=== PATIENT | male | born 1970 | race Two or more races ===

== ENCOUNTER 2022-11-24 17:30 | Emergency (ER) | payer OTHER ==
[2022-11-24 17:53] VITALS: RESP 18
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
[2022-11-24 20:46] VITALS: BP 167/92; PULSE 63; TEMP 98.2
== END 2022-11-24 20:45 | disposition home or self-care (01) ==
LOC: EC 17:30
DX: M54.50 Low back pain, unspecified (principal); V89.2XXA Person injured in unspecified motor-vehicle accident, traffic, initial encounter; Y92.410 Unspecified street and highway as the place of occurrence of the external cause
CPT/HCPCS: 72110; 99284

== ENCOUNTER → 2023-02-03 | Outpatient (CLI) | payer BC ==
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
== END | disposition home or self-care (01) ==
LOC: RADUSWWP 10:30
PROVIDERS: ATTEND Family Medicine
DX: S46.202A Unspecified injury of muscle, fascia and tendon of other parts of biceps, left arm, initial encounter (principal)

== ENCOUNTER → 2024-04-26 | Outpatient (CLI) | payer BC ==
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
== END | disposition home or self-care (01) ==
LOC: RADCTMAIN 06:58
PROVIDERS: ATTEND Family Medicine
DX: M51.379 Other intervertebral disc degeneration, lumbosacral region without mention of lumbar back pain or lower extremity pain (principal)
CPT/HCPCS: 74178